=== PATIENT | female | born 1995 ===

== ENCOUNTER 2017-09-14 20:27 | Emergency (ER) | payer OTHER ==
[~2017-09-14] VITALS: Ht 165.1 cm; Wt 104.3 kg
[~2017-09-14 20:27] MED LIST: BENADRYL25 MG/STRI PO; MEDROL4 MG PO
== END 2017-09-15 00:01 | disposition home or self-care (01) ==
LOC: ER 20:27
DX: N20.0 Calculus of kidney (principal); K80.20 Calculus of gallbladder without cholecystitis without obstruction

== ENCOUNTER 2021-06-10 11:04 | Emergency (ER) | payer OTHER ==
[~2021-06-10] VITALS: Ht 167.6 cm; Wt 102.1 kg
[2021-06-10] MEDS ORDERED: AZITHROMYCIN500 MG PO (17:09)
[2021-06-10] MEDS ORDERED: MUCINEX DM ER1 EAC1 PO (17:09)
[2021-06-10] MEDS ORDERED: MEDROLPACK PO (17:09)
[2021-06-10] MEDS ORDERED: ZYRTEC10 MG PO (17:09)
[2021-06-10] MEDS ORDERED: ACETAMINOPHEN650 M2 PO (17:09)
[2021-06-10] MEDS ORDERED: LEVALBUTER1.25 MG/3 IH (17:10)
== END 2021-06-10 17:20 | disposition home or self-care (01) ==
LOC: ER 11:04
DX: J06.9 Acute upper respiratory infection, unspecified (principal); R51.9 Headache, unspecified; B34.9 Viral infection, unspecified; Z20.822 Contact with and (suspected) exposure to COVID-19

== ENCOUNTER 2022-01-15 17:51 | Emergency (ER) | payer OTHER ==
[~2022-01-15] VITALS: Ht 162.6 cm; Wt 99.8 kg
[~2022-01-15 17:51] MED LIST changes: +ACETAMINOPHEN650 M2 PO; +AZITHROMYCIN500 MG PO; +LEVALBUTER1.25 MG/3 IH; +MEDROLPACK PO; +MUCINEX DM ER1 EAC1 PO; +ZYRTEC10 MG PO
== END 2022-01-15 22:23 | disposition home or self-care (01) ==
LOC: ER 17:51
DX: O98.511 Other viral diseases complicating pregnancy, first trimester (principal); U07.1 COVID-19; Z3A.01 Less than 8 weeks gestation of pregnancy; B34.9 Viral infection, unspecified